=== PATIENT | female | born 1965 | race Caucasian/White ===

== ENCOUNTER 2021-02-14 13:41 | Emergency (ER) | payer SELFPAY ==
[~2021-02-14] VITALS: Ht 162.6 cm; Wt 101.2 kg
--- NOTE | 2021-02-14 14:01 | NUR ---
OZZIE FROM HER WORK TO ER BED 6. AAOX4. NOT IN RESP DISRESS. AMBULATORY. BROUGHT IN FOR DOG BITE ON HER R HAND. NOTED RFA W/ 3 PUNCTURE AND A 2 CM LACERRATION UNAPPROXIMATED. MIN BLEEDING NOTED. PAIN IS 9/10BIGGER. EMT CALLED TO BEDSIDE FOR WOUND CLEANING. MD AT BEDSIDE FOR EVAL. ORDERS RECEIVED, NOTED AND CARRIED OUT.
[2021-02-14] MEDS ORDERED: ACETAMINOPHEN ES 500 MG TABLET ONE (14:26)
[2021-02-14] MEDS ORDERED: IBUPROFEN 600 MG TABLET ONE (14:26)
[2021-02-14] MEDS ORDERED: IBUPROFEN 600 MG TABLET PO ONE (14:30)
[2021-02-14] MEDS ORDERED: ACETAMINOPHEN ES 500 MG TABLET PO ONE (14:30)
--- NOTE | 2021-02-14 15:59 | NUR ---
WILFREDO COLEMAN AT BEDSIDE FOR SUTURE
[2021-02-14] MEDS ORDERED: AMOX-427 PO (16:14)
--- NOTE | 2021-02-14 16:35 | NUR ---
pt's wound cleansed with ns, pat dry, non adherent dressing and wrapped with kerlix. wound care demonstrated to pt.
--- NOTE | 2021-02-14 16:43 | NUR ---
Patient discharged to home in stable condition. Written and verbal after care instructions given. Patient verbalizes understanding of instruction. Pt ambulatory with a steady gait
[2021-02-14 16:44] VITALS: BP 132/81
== END 2021-02-14 16:44 | disposition home or self-care (01) ==
LOC: ER 13:47
DX: S61.412A Laceration without foreign body of left hand, initial encounter (principal); S61.512A Laceration without foreign body of left wrist, initial encounter; S70.11XA Contusion of right thigh, initial encounter; S30.811A Abrasion of abdominal wall, initial encounter; Z88.5 Allergy status to narcotic agent; Z88.6 Allergy status to analgesic agent; Z91.018 Allergy to other foods; Z88.8 Allergy status to other drugs, medicaments and biological substances; Z79.899 Other long term (current) drug therapy; W54.0XXA Bitten by dog, initial encounter; Y93.89 Activity, other specified; Y92.89 Other specified places as the place of occurrence of the external cause; Y99.8 Other external cause status
CPT/HCPCS: 12002; 73090; 99283; A6403